=== PATIENT | male | born 1990 | race Caucasian/White ===

== ENCOUNTER 2018-11-16 16:40 | Emergency (ER) | payer SELFPAY ==
[2018-11-16 16:44] VITALS: BP 138/82; PULSE 77; TEMP 97.8; BMI 25.9
--- NOTE | 2018-11-16 16:58 | PDOC ---
History of Present Illness - General Chief Complaint: Diarrhea Stated Complaint: DIARRHEA Time Seen by Provider: 11/16/18 16:43 History Source: Patient Exam Limitations: No Limitations - History of Present Illness Initial Comments: 11/16/18 17:32 HPI 28 YOM with no medical history presenting with abdominal cramping and watery brown diarrhea x 1 week. He is originally from [facility]. He has been in [place] x 7 months learning [place], most recently in [place] x 1 month and came to the [facility] ~3 days ago on night. Earlier in the week while in [place], he had consumed dominos pizza, ice cream and sushi ~1 week ago, with a fellow friend with similar diarrheal illness afterwards. He initially had multiple episodes of nonbloody brown watery diarrhea, now down to 3-4X per day. He has been experiencing abdominal cramping and periumbilical discomfort, has been tolerating PO intake and light diet of gatorade, rice and bananas with some improvement. Denies fever, chills, chest pain, SOB, palpitation, dizziness, weakness, bloody stools, bladder and bowel problems, leg swelling, +suspicious food intake + travel history. [place] friend with +GI illness/diarrhea after eating the same foods. Allergies: NKA Past Medical History: none Social history: Lives with family. +current smoker. social alcohol. No illicit drugs. Surgical history: deviated septum repair, appendectomy PMD: in [facility] ROS Constitutional: no fevers or chills. HEENT: no headache or dizziness. No congestion. No visual/hearing disturbances. CVS: no cp or syncope. Resp: no sob. No cough. Gastrointestinal: +abdominal cramping, nausea and diarrhea; no vomiting. Genitourinary: no urinary sx, hematuria. MUSCULOSKELETAL: No joint pain and swelling. No neck or back pain. SKIN: no redness or skin changes, no discharge, no rash. No wounds. Hematologic: no easy bruising/bleeding. NEUROLOGIC: No headache, dizziness, LOC or altered mental status. No weakness, numbness or tingling. Allergic/Immunologic: no allergies All other systems reviewed and negative, or as documented in HPI. PE: General: Well appearing, awake and alert, NAD. HEENT: NCAT, PERRL, EOMI, clear conjunctiva, anicteric, moist mucus membranes, clear oropharynx, no oral lesions.. Neck: neck supple, FROM Resp: CTAB, normal and even respirations, no respiratory distress CVS: RRR, no murmurs, 2+ peripheral pulses throughout, no peripheral edema Abdomen: soft, NTND, no peritoneal signs. No CVAT Back: nontender, normal inspection and ROM MSK: no edema, CHAVEZ x4, ROM intact. No clubbing or cyanosis. normal bulk and tone. Extremities: no calf tenderness Neuro: alert Skin: warm and well perfused, cap refill <2 sec, normal color 11/16/18 17:32 Past History - Past Medical History Allergies/Adverse Reactions: Allergies Allergy/AdvReac Type Severity Reaction Status Date / Time No Known Allergies Allergy Verified 11/16/18 16:41 Home Medications: Ambulatory Orders NK [No Known Home Medication] 11/16/18 COPD: No - Suicide/Smoking/Psychosocial Hx Smoking History: Current every day smoker Number of Cigarettes Smoked Daily: 2 Information on smoking cessation initiated: Yes Hx Alcohol Use: Yes (OCASIONAL) Drug/Substance Use Hx: Yes (MARIJUANA) *Physical Exam - Vital Signs Last Vital Signs Temp Pulse Resp BP Pulse Ox 97.8 F 77 18 138/82 100 11/16/18 16:40 11/16/18 16:40 11/16/18 16:40 11/16/18 16:40 11/16/18 16:40 Moderate Sedation - Procedure Monitoring Vital Signs: Procedure Monitoring Vital Signs Temperature 97.8 F 11/16/18 16:40 Pulse Rate 77 11/16/18 16:40 Respiratory Rate 18 11/16/18 16:40 Blood Pressure 138/82 11/16/18 16:40 O2 Sat by Pulse Oximetry (%) 100 11/16/18 16:40 ED Treatment Course - LABORATORY CBC & Chemistry Diagram: 11/16/18 17:18 11/16/18 17:18 Medical Decision Making - Medical Decision Making 11/16/18 17:32 See HPI for details DDx Gastroenteritis, food poisoning, traveler's diarrhea, electrolyte/metabolic derangements, dehydration, infectious colitis Vital signs reviewed, wnl. Prior notes reviewed, including admissions, discharges and consultations. laboratory results and imaging reviewed, basic labs and lytes wnl, notable for LFTs and lipase_wnl. ED course: IVF, pepcid, tylenol, bentyl with travel and suspicious food intake and prolonged sx, will give oral abx - cipro 750mg x1 dose for the traveler's diarrhea and symptom control advised hydration, rest and supportive care. Dispo: Pt informed of my clinical impression, treatment recommendations and disposition plan. All questions answered to patient's satisfaction and expressed understanding and comfort with this. Reasons for returning to the ED sooner discussed with the patient otherwise, follow up with primary care physician. At the time of discharge, the patient is alert, clinically improved, tolerating po and verbalizes understanding of instructions. Patient does not suffer from an acute life-threatening medical condition at this time he is safe for outpatient follow-up. 11/16/18 17:53 11/16/18 18:25 *DC/Admit/Observation/Transfer Diagnosis at time of Disposition: Diarrhea Qualifiers: Diarrhea type: presumed infectious Qualified Code(s): R19.7 - Diarrhea, unspecified - Discharge Dispostion Disposition: HOME Condition at time of disposition: Stable Decision to Admit order: No - Referrals Referrals: [facility] [Provider Group] [facility] [Provider Group] - Patient Instructions Printed Discharge Instructions: DI for Diarrhea and Traveler's Diarrhea -- Adult Additional Instructions: you most likely have traveler's diarrhea, you were given one dose of ciprofloxacin x 1 for your symptoms and this should shorten your time course and severity. stay well hydrated liquid diet and gatorade, bananas and soups are advised, advance as tolerated this should resolve over the next 1 week or so avoid triggers and suspicious food intake your blood work is all normal, this is reassuring. You should return to the hospital if you experience return of persistent nausea and vomiting that does not resolve and does not allow you to tolerate any food or fluids, persistent fevers for greater than 2-3 more days, increasing abdominal pain that persists despite medications, persistent diarrhea, dizziness , syncope (fainting), or for any other concerns. For more information about how to make your own rehydration solution if you experience diarrhea/vomiting please visit: [email or web address] - Post Discharge Activity
[2018-11-16] MEDS ORDERED: SODIUM CHLORIDE 1,000 ML IV STA (17:01)
[2018-11-16] MEDS ORDERED: DICYCLOMINE HCL 20 MG TABLET PO ONE (17:01)
[2018-11-16] MEDS ORDERED: FAMOTIDINE 20 MG/50 ML IVPB 20 MG/50 ML MG IVPB ONE ×2 (17:01→17:20)
[2018-11-16] MEDS ORDERED: ACETAMINOPHEN 325 MG TABLET (FP) PO ONE (17:01)
[2018-11-16] MEDS ORDERED: DICYCLOMINE HCL 10 MG CAPSULE ONE (17:19)
[2018-11-16] MEDS ORDERED: ACETAMINOPHEN 325 MG TABLET (FP) ONE (17:20)
[2018-11-16 17:38] LABS: BASO % 1.5 % (0-2.0); EOS % 1.6 % (0-4.5); HEMATOCRIT 46.1 % (35.4-49); HEMOGLOBIN 15.1 GM/dl (11.7-16.9); LYMPH % 37.4 % (8-40); MCH 29.1 pg (25.7-33.7); MCHC 32.9 g/dl (32.0-35.9); MEAN CELL VOLUME 88.6 fl (80-96); MEAN PLT VOLUME 7.1 fl (7.5-11.1); MONO % 11.8 % (3.8-10.2); NEUT % 47.7 % (42.8-82.8); PLATELET COUNT 312 K/MM3 (134-434); RDW 11.9 % (11.9-15.9); WHITE BLOOD COUNT 8.2 K/mm3 (4.0-10.8)
[2018-11-16 17:47] LABS: ALK PHOS 87 U/L (45-117); ANION GAP 11 MMOL/L (8-16); BILIRUBIN,TOTAL 1.2 mg/dl (0.2-1); BLOOD UREA NITROGEN 10 mg/dl (7-18); CHLORIDE 103 mmol/L (98-107); CO2 21 mmol/L (21-32); CREATININE 0.8 mg/dl (0.55-1.3); GLUCOSE,RANDOM 89 mg/dl (74-106); POTASSIUM 3.9 mmol/L (3.5-5.1); SGOT/AST 18 U/L (15-37); SGPT/ALT 11 U/L (13-61); SODIUM 135 mmol/L (136-145); TOT PROT 7.3 g/dl (6.4-8.2)
[2018-11-16] MEDS ORDERED: CIPROFLOXACIN 500 MG TABLET (RESTRICTED TO ID) PO ONE (17:51)
[2018-11-16] MEDS ORDERED: CIPROFLOXACIN 250 MG TABLET (RESTRICTED TO ID) PO ONE (17:53)
[2018-11-16 19:04] LABS: LIPASE 120 U/L (73-393)
== END 2018-11-16 19:22 | disposition home or self-care (01) ==
LOC: FER 16:40
PROC: 3E033GC Introduction of Other Therapeutic Substance into Peripheral Vein, Percutaneous Approach (ICD-10-PCS; principal; 2018-11-16)
PROC: 3E0337Z Introduction of Electrolytic and Water Balance Substance into Peripheral Vein, Percutaneous Approach (ICD-10-PCS; 2018-11-16)
DX: R19.7 Diarrhea, unspecified (principal)
CPT/HCPCS: 36415; 80053; 83690; 85025; 99282-25; J7030